=== PATIENT | female | born 1975 | race Caucasian/White ===

== ENCOUNTER 2018-12-20 05:32 | Day surgery (SDC) ==
[2018-12-13 14:29] LABS: BASO# 0.04 X1000 (0.0-0.2); BASO% 0.4 % (0.0-0.8); EOS# 0.12 X1000 (0.0-0.7); EOS% 1.3 % (0.0-10.0); HEMATOCRIT 43.3 % (37.0-47.0); IMM GRAN# 0.02 X1000 (0.0-0.04); IMM GRAN% 0.2 % (0.0-0.5); LYMPH# 2.86 X1000 (1.2-3.4); LYMPH% 31.1 % (20.5-51.1); MCH 30.4 PG (27-31); MCHC 32.3 g/dL (33-37); MCV 94.1 FL (81-99); MONO# 0.48 X1000 (0.11-0.59); MONO% 5.2 % (1.7-9.3); MPV 9.2 FL (7.4-10.4); NEUT# 5.68 X1000 (1.4-6.5); NEUT% 61.8 % (42.2-75.2); PLT 373 X1000 (130-400)
--- NOTE | 2018-12-19 09:34 | HISTORY AND PHYSICAL ---
HISTORY: The patient is a 43-year-old female who is having stress incontinence, worsening pelvic organ prolapse, and menorrhagia who was admitted for definitive surgical intervention. She has been managed conservatively for her bleeding, and she is wishing to have the uterus removed now because of her failed management conservatively. However, she also has some prolapse issues so we are going to be performing prolapse surgery concomitantly. PAST MEDICAL HISTORY: Negative for diabetes, hypertension or asthma. PAST SURGICAL HISTORY: Positive for spinal disk fusion at C5-C6. ALLERGIES: No known drug allergies. CURRENT MEDICATIONS: P.r.n. medications. SOCIAL HISTORY: Negative for EtOH or drugs. Positive for tobacco. FAMILY HISTORY: Noncontributory. PHYSICAL EXAMINATION: GENERAL: BMI is 27. HEENT: Normocephalic, atraumatic. PERRLA. EOMI. No thyromegaly. CV: Regular rate and rhythm without murmur, gallop, or rub. PULMONARY: Clear to auscultation and percussion. ABDOMEN: Soft. : POP-Q Stage II prolapse with most of it being an anterior apical defect. NEUROLOGIC: Afocal. EXTREMITIES: Without clubbing, cyanosis, or edema. ASSESSMENT AND PLAN: Patient with menorrhagia, stress incontinence, and a significant anterior compartment defect who is wishing to proceed with definitive surgical intervention. She is admitted at this time for robotic supracervical hysterectomy, sacrocolpopexy, and mid urethral sling with Obtryx with a possible posterior defect repair as well. The patient was counseled at length regarding risks and benefits, and she is wishing to proceed. cc: Jose Elias Hanks MD
[2018-12-20] MEDS ORDERED: PEPCID ONE (05:46)
[2018-12-20] MEDS ORDERED: KEFZOL 1 GM/D5W 1 GM/50 ML IVPB ONE (05:46)
[2018-12-20] MEDS ORDERED: LR 1,000 ML ONE ×3 (05:46→12:06)
[2018-12-20] MEDS ORDERED: REGLAN ONE (05:46)
[2018-12-20] MEDS ORDERED: DIPRIVAN 1% ONE (06:24)
[2018-12-20] MEDS ORDERED: VERSED ONE (06:24)
[2018-12-20] MEDS ORDERED: FENTANYL ONE (06:25)
[2018-12-20] MEDS ORDERED: DECADRON ONE ×2 (06:27→12:15)
[2018-12-20] MEDS ORDERED: ZOFRAN ONE ×2 (06:27→12:15)
[2018-12-20] MEDS ORDERED: TORADOL ONE ×2 (06:27→12:31)
[2018-12-20] MEDS ORDERED: QUELICIN (DOSE) ONE (06:27)
[2018-12-20] MEDS ORDERED: XYLOCAINE-MPF 2% ONE (06:27)
[2018-12-20] MEDS ORDERED: SODIUM CHLORIDE 0.9% 10 ML ONE (06:27)
[2018-12-20] MEDS ORDERED: NORCURON ONE (06:27)
[2018-12-20] MEDS ORDERED: D10W 1,000 ML ONE (06:31)
[2018-12-20] MEDS ORDERED: SENSORCAINE-MPF 0.5%/EPI 1:200,000 ONE ×2 (06:31→11:01)
--- NOTE | 2018-12-20 06:42 | H&P REVIEW ---
H&P Update H&P Review: H&P was reviewed and patient was examined, No change has occurred in the patient's condition
[2018-12-20] MEDS ORDERED: ROBINUL ONE ×3 (07:05→12:07)
[2018-12-20] MEDS ORDERED: DILAUDID ONE (07:35)
[2018-12-20 10:07] LABS: URINE SOURCE CATH
[2018-12-20] MEDS ORDERED: LASIX ONE (10:14)
[2018-12-20 10:15] LABS: BILIRUBIN URINE NEGATIVE (NEGATIVE); BLOOD URINE NEGATIVE (NEGATIVE); COLOR YELLOW; GLUCOSE URINE NEGATIVE (NEGATIVE); KETONE URINE NEGATIVE (NEGATIVE); LEUKOCYTES URINE NEGATIVE (NEGATIVE); NITRITE URINE NEGATIVE (NEGATIVE); PH URINE 5.5; PROTEIN URINE NEGATIVE (NEGATIVE); SP GRAVITY URINE 1.016; TURBIDITY URINE CLEAR (CLEAR); UROBILINOGEN URINE NORMAL (NORMAL)
[2018-12-20 10:26] LABS: UR EPITHELIAL CELLS <10 /HPF (<10); URINE BACTERIA NEGATIVE /HPF; URINE RBC <10 /HPF (<10); URINE WBC <10 /HPF (<10)
[2018-12-20] MEDS ORDERED: NEOSTIGMINE ONE (10:43)
[2018-12-20] MEDS ORDERED: METROGEL-VAGINAL 0.75% GEL ONE (11:04)
[2018-12-20] MEDS ORDERED: DUONEB (A & A) INH ONE (11:26)
[2018-12-20] MEDS: DILAUDID ONE ×2 (12:06→12:16)
--- NOTE | 2018-12-20 12:08 | OPERATIVE NOTE ---
PROCEDURE DATE: 12/20/2018 PREOPERATIVE DIAGNOSES: 1. Menorrhagia. 2. Symptomatic pelvic organ prolapse. PROCEDURE: 1. Laparoscopic supracervical hysterectomy. 2. Abdominal sacrocolpopexy. 3. Mid urethral sling with Obtryx. 4. Distal posterior compartment defect repair. 5. Bilateral salpingectomy. SURGEON: Jose Elias Hanks MD. SPORTING GOODS SALESPERSON: Jesusita Felix. ESTIMATED BLOOD LOSS: 125 mL. HISTORY: The patient is a 43-year-old female who had been followed by one of my partners with long-standing menorrhagia, who wished to proceed with surgical intervention. She was found to have POP-Q stage II prolapse as well that was mostly apical and anterior in nature. She wished to proceed towards surgical intervention and correction of the menorrhagia as well as the prolapse. The risks and benefits have been discussed at length. OPERATIVE FINDINGS: Consistent with preoperative diagnosis. Normal bladder with efflux of urine from both ureters after completion of the procedure. No other abnormalities. OPERATIVE PROCEDURE: Patient was taken to the operating room, placed in supine position. After adequate general anesthesia was obtained, she was placed in low adjustable stirrups. Her abdomen and vagina were prepped and draped in the usual fashion. A supraumbilical incision was made after infiltration of 0.25% Marcaine with epinephrine. A 12 mm port and sheath were introduced through this incision into the abdominal cavity. Pelvic contents were visualized. Therefore, insufflation with CO2 to an intra-abdominal pressure of 14 was performed. Left- sided ports were placed under direct visualization of the laparoscoped after local anesthetic was injected and then the right-sided ports were placed in a similar fashion as well. The patient was placed in moderate Trendelenburg position. EEA sizers were placed within the vagina and the rectum and Kauffman catheter was placed. Patient was then placed in deep Trendelenburg positioning. The robot was docked in the usual fashion. Hot scissors in the right hand and bipolar gyrus in the left and a single-tooth tenaculum in the third arm. Elevating the uterus out of the pelvis, we initially started with the salpingectomies which were performed, so the right fallopian tube was elevated away from the ovary. The mesosalpinx was clamped, cauterized and cut and continued to clamp, cauterize, and cut fashion down through the round ligament, utero-ovarian pedicle, and then down the cardinal ligament approximately half way. We then turned our attention towards the contralateral side, in a similar fashion elevated the fallopian tube away from the ovary, clamp, cauterize and cutting the mesosalpinx, the round ligament, the uteroovarian pedicle, and then down the cardinal ligament. We then continued with our dissection down the cardinal ligament in this way and then began our anterior dissection of the bladder away from the uterus and cervix. We clamped, cauterized and cut the uterine vessels on the left-hand side. We then turned our attention towards the right side, in a similar fashion continued with the bladder dissection. We then clamped, cauterized and cut the uterine vessels on the right-hand side. We continued with the vesicovaginal dissection well below the operative site and then identified the insertion of the uterosacral ligaments distally. We used a single blade of the hot scissors to come across the corpus of the uterus right at the insertion of the uterosacral ligaments until the corpus was extirpated from the cervical stump. This was then placed in the appendiceal bed. We regrasped the cervical stump and elevated it out of the pelvis and then continued with our vesicovaginal dissection down to just about the Kauffman bulb. We then turned our attention towards the posterior compartment and did our posterior dissection in the typical fashion as well, getting down approximately 10 cm or so in the posterior compartment. We had approximately 8 to 9 cm dissected out anteriorly. We then went up to the sacral promontory and deviating the descending colon laterally. We were able to identify the ureter along the right-hand side. We elevated the peritoneum in this area and then began our dissection down towards the anterior longitudinal ligament. We removed several presacral pieces of fat to be able to visualize this and could also visualize the sacral vessels in this site. We then created our tunnel down the peritoneal side on the right-hand side, paying attention to the ureter on the right side and the colon medially. We completed the dissection all the way down to our posterior prior dissection. We then trimmed our mesh in the usual fashion. We had approximately 9 cm trimmed anteriorly and approximately 8 cm trimmed posteriorly. We placed the mesh intra-abdominally and actually removed another 1 cm of mesh from the anterior compartment. We secured the mesh anteriorly with multiple Linwood-Devante sutures in an interrupted fashion, approximately 10 to 12 sutures were placed anteriorly with initial surgeon's throw and 4 half throws after this. We came across the cervical stump in a similar fashion and then posteriorly went down. We had cut our mesh too short in the posterior compartment, so we placed another 4 cm section in this area and dissected and brought that down to the dissected space in that area. Again, all sutures were thrown with an initial surgeon's throw and 4 half throws after this, and there was approximately 12 sutures placed in the posterior compartment as well. The third arm was brought up to the promontory. Two sutures were placed through the mesh, third arm into the anterior longitudinal ligament and secured with the same knot arrangement. Excessive mesh was trimmed. We then closely inspected the peritoneal areas and hemostasis was observed. We turned our attention towards reperitonealization. Using a V-Loc suture we reperitonealized; however, we brought the suture trying to secure it in the posterior portion and actually placed a 2nd V-Loc suture in at that point and re- pursestring through this area, closing 85 to 90 percent of the mesh with the peritoneum. Because there was some exposed mesh, the decision was made to place Interceed across this area, which was easily done after we had irrigated and observed for hemostasis by dropping our pressures down. Interceed was then placed and we then turned our attention towards morcellation. The assistance port was removed, the morcellator was placed. Dr. Felix morcellated the uterus, maintaining visualization of the blade throughout. This was easily done. We closely inspected for any retained pieces and this appeared to be within normal limits. We then used a Jb-Rod closure system to close the fascia and peritoneum of both the assistance port site as well as the supraumbilical port site. This was done with 0 Vicryl ligature. Abdomen was deflated of all CO2 as all the remaining ports were removed and nursing services closed all skin incisions with a 4.0 Vicryl ligature in a subcuticular fashion and surgical glue. Vaginally, we grasped the urethra proximally and distally with Allis clamps and injected another 8 to 10 mL of the same local anesthetic for hydrodissection as well as pain management in this area. A sagittal incision was made. Metzenbaum scissors were utilized to dissect up towards the ischial pubic ramus at the 10 o'clock and 2 o'clock position. Based on the bony landmarks of the ramus and the insertion of the adductor longus, a stab incision was initially made on the left-hand side. The halo device was introduced through that incision through the obturator canal to the seed yeast operator's finger, which directed the needle out. The mesh was attached to it and was retracted back through the skin. This was performed on the contralateral side in a similar fashion. We then placed a cystoscope and filled the bladder with approximately 300 mL. Both ureters were effluxing urine. There was no evidence of any suture material or abnormalities within the bladder mucosa. There was no evidence of any mesh whatsoever from the sling. Cystoscope was removed and a Helene clamp was placed in the mid urethral position. The sleves were brought out with the Helene clamp and blue tag was excised and the sheaths were easily removed. There is no tension on the mesh whatsoever. Mid urethral incision was closed with a running 2.0 Vicryl ligature. At this time, upon rectal examination, the decision was made to proceed with a distal posterior compartment defect repair. Allis clamps were utilized to grasp the defect in the midline. Another 20 mL of the same local anesthetic was injected for hydrodissection of this area. A sagittal incision was made and sharp and blunt dissection was performed laterally towards the distal levators. We used a 0 Vicryl ligature in a running fashion to reapproximate this distal portion the levators. We trimmed approximately 1 to 2 cm of vaginal mucosa off from the lateral portions and then closed the vaginal incision with a running 2.0 Vicryl ligature. Kauffman catheter was placed. Vaginal pack was placed. Sponge count, instrument count, needle counts correct x3. Packs and drains were Kauffman and vaginal pack. The patient was taken out of low adjustable stirrups. She was awakened and taken to the recovery room with vital signs stable. cc: Jose Elisa Hanks MD [id number]
[2018-12-20] MEDS ORDERED: OFIRMEV 1000 MG/ISOTONIC SOLN 1,000 MG/100 ML BOTTLE ONE (12:16)
[2018-12-20] MEDS ORDERED: PRILOSEC PO PRN (13:44)
[2018-12-20] MEDS ORDERED: PHENERGAN IM PRN (13:44)
[2018-12-20] MEDS ORDERED: ZOFRAN ODT PO PRN (13:44)
[2018-12-20] MEDS: COLACE PO SCH ×2 (14:36→20:55)
[2018-12-20] MEDS: TORADOL IV SCH ×2 (14:36→20:55)
[2018-12-20] MEDS: LR 1,000 ML IV SCH ×2 (14:39→21:55)
[2018-12-20] MEDS: PERIDEX MT SCH ×2 (14:40→21:01)
[2018-12-20] MEDS: NORCO-5 PO PRN ×2 (14:47→19:04)
--- NOTE | 2018-12-20 15:35 | PROGRESS NOTE ---
DATE: 12/20/2018 SUBJECTIVE: The patient is alert and oriented x3. She is sitting in the bed. Her mother is in the room with her. OBJECTIVE: Afebrile. Vital signs stable. Urine output is adequate and clear. ASSESSMENT AND PLAN: Routine postoperative care. We did discuss postoperative care management. I did explain to the patient that I would be leaving for meeting in approximately 4 days, and that my partners will be covering for me. We discussed her postoperative care in the morning, and her postoperative discharge medications. I answered all questions. She will be discharged home if she has a good evening after removal of her Kauffman and vaginal pack, and successful completion of her voiding trial. cc: Jose Elias Hanks MD
[2018-12-20] MEDS: DEMEROL IM PRN (20:55)
[2018-12-21] MEDS: NORCO-5 PO PRN ×2 (01:34→07:34)
[2018-12-21] MEDS: TORADOL IV SCH ×2 (01:44→08:50)
[2018-12-21] MEDS: DEMEROL IM PRN (05:30)
[2018-12-21] MEDS: LR 1,000 ML IV SCH (05:31)
--- NOTE | 2018-12-21 06:42 | DISCHARGE SUMMARY ---
ADMISSION DATE: 12/20/2018 DISCHARGE DATE: PRINCIPAL DIAGNOSIS: Symptomatic pelvic organ prolapse. PROCEDURE: Da Johan supracervical hysterectomy, abdominal sacrocolpopexy, mid urethral sling and Obtryx, and distal posterior compartment defect repair, and bilateral salpingectomy. HISTORY: The patient is a 43-year-old female who is having increasing problems with menorrhagia as well as pelvic organ prolapse. She was admitted for surgical intervention. HOSPITAL COURSE: Patient underwent the above-stated procedure. Blood loss at that time was approximately 100 mL. Postoperative course was uncomplicated. She is currently undergoing voiding trial and is being discharged home with instructions for followup in 2 to 3 weeks. DISCHARGE MEDICATIONS: Munith, Colace, and Toradol. DISCHARGE INSTRUCTIONS: She was instructed in regular diet and decreased activity. cc: Jose Elias Hanks MD
[2018-12-21 07:51] VITALS: BP 101/60
[2018-12-21] MEDS: COLACE PO SCH (08:50)
[2018-12-21] MEDS: PERIDEX MT SCH (08:51)
== END 2018-12-21 09:10 | disposition home or self-care (01) ==
LOC: 4N 05:32 → OPS 05:32
PROVIDERS: ATTEND Obstetrics & Gynecology
CPT/HCPCS: 81001; 84703; 85025; 88307; 94640; 94761; A9270; C1765; C1771; C1781; J0131; J0330; J0690; J1100; J1170; J1885; J1940; J2175; J2250; J2405; J3010; J7120; S2900